=== PATIENT | male | born 1950 | race Caucasian/White ===

== ENCOUNTER 2016-12-21 05:29 | Day surgery (SDC) | payer OTHER ==
[~2016-12-21] VITALS: Ht 180.3 cm; Wt 122.5 kg
--- NOTE | ~2016-12-21 | O ---
[facility] [place] [address] OPERATIVE REPORT Name: JUSTUS CASILLAS Room #: DEP [facility] M.R.#: [id number] Admission: 12/21/16 Attend Phys: Kody Nova MD Discharge: 12/21/16 Date of : 46 Report #: [id number] THIS REPORT FOR: //name// CC: Kody Nova Hi Wagner DATE OF SERVICE: 12/21/2016 PREOPERATIVE DIAGNOSIS: Right buccal mass. POSTOPERATIVE DIAGNOSIS: Right buccal mass. PROCEDURE: Excision of buccal mass with primary closure. SURGEON: Kody Nova MD ANESTHESIA: 2 mL of 1% Xylocaine 1:100,000 epinephrine. TECHNIQUE: After obtaining consent, the patient was brought to the operating suite, appropriate time out was performed. The lesion was localized by the patient and myself. Local anesthetic was infiltrated submucosally. An elliptical incision anterior to posterior artery was made around the mass through the submucosa. Using iris scissors, it was amputated away from the submucosal layer. Hemostasis was maintained with the use of pinpoint cautery on a setting of 15 coagulation. closure, I then elevated the submucosal flaps superiorly and inferiorly and this was closed with simple interrupted 4-0 chromic sutures. He tolerated the procedure well and was taken to the preoperative area in stable condition. Estimated blood loss 2 mL. By: [id number] Kody Nova MD /ruth
--- NOTE | ~2016-12-21 | H ---
[facility] [place] [address] HISTORY AND PHYSICAL Name: JUSTUS CASILLAS Room #: DEP [facility] M..#: [id number] Admission: 12/21/16 Attend Phys: Kody Nova MD Discharge: 12/21/16 Date of : 46 Report #: [id number] THIS REPORT FOR: //name// CC: Kody Rodriguezconchis Hatchaker DATE OF SERVICE: 12/21/2016 DATE OF SURGERY: 12/21/2016. CHIEF COMPLAINT: Right buccal mass. HISTORY OF PRESENT ILLNESS: The patient is a gentleman who has been noted to have a small exophytic mass in right anterior buccal mucosa, which had been present for about a month and slowly increasing in size, but is not causing any other symptoms such as pain, bleeding, or irritation. He may or may not have traumatized the area locally. Examination shows this to be a small exophytic mucosally covered mass with a large base against the buccal mucosa, it appears to not be any more than submucosal. After the findings were discussed with the patient, I recommended removing of the mass under local anesthetic with primary closure with the use of absorbable sutures. The risks and benefits of removal as well as the risks of leaving alone were discussed and the natural history was discussed with him as well. He agrees to proceed forward. ALLERGIES TO MEDICATION: None. MEDICATIONS ON ADMISSION: Coumadin 6 mg tablets daily, vitamin D and vitamin B complex, stool softeners, tamsulosin 0.4 mg once a day, simvastatin 10 mg once a day, omeprazole 20 mg once a day, metoprolol 25 mg once a day, Losartan 50 mg once a day, and levothyroxine 125 mcg once a day. PAST MEDICAL HISTORY: Notable for essential hypertension, hypercholesterolemia, osteoarthritis, coronary artery disease, and hypothyroidism. PAST SURGICAL HISTORY: Unremarkable. FAMILY HISTORY: Noncontributory. REVIEW OF SYSTEMS: Negative for any GI, or cardiovascular issues . PHYSICAL EXAMINATION: GENERAL: Appears his stated age. VITAL SIGNS: Height is 6 feet, weight 265 pounds, and blood pressure 105/83. HEENT: Shows the above-mentioned somewhat fleshy appearing exophytic mass of the right anterior buccal mucosa, it is mobile and is not ulcerative. There is no surrounding leukoplakia. The remainder of the oral cavity is unremarkable. [address] [address] HISTORY AND PHYSICAL Name: SONJAJUSTUS GOTTLIEB [id number] Admission: 12/21/16 Attend Phys: Kody Nova MD Discharge: 12/21/16 Date of : 46 Report #: [id number] NECK: Normal to palpation. CHEST: Clear. CARDIOVASCULAR: Regular rhythm. ASSESSMENT: History of right buccal mass. PLAN: Will be for excision under local anesthetic with primary closure. By: [id number] Kody Nova MD /ruth
--- NOTE | ~2016-12-21 | S ---
[facility] [place] [address] SURGICAL PATH RPT PROCEDURE Name: JUSTUS CASILLAS Room #: DEP [facility]#: [id number] Admission: 12/21/16 Date of : 46 Discharge: 12/21/16 Report #: [id number] Path Case #: [id number] PATHOLOGY REPORT COLLECTION DATE: 12/21/2016 RECEIVED DATE: 12/21/2016 SUBMITTING PHYS: Dr. Kody Nova OTHER PHYS: Dr. Hi Wagner SPECIMEN(S) RECEIVED: A.Right cheek mucosa * * * * * * * * * * * * FINAL DIAGNOSIS: "Right cheek mucosa," excisional biopsy: - Benign squamous mucosa with focal keratinization and submucosal tissue with localized collagenized fibroadipose connective tissue; no dysplasia or malignancy seen. (see comment) COMMENT: The histologic findings may represent a submucosal fibrolipoma or submucosal fibrosis / scar formation. Overlying dysplasia is not present. No malignancy is seen. Clinical correlation is required. The case is co-reviewed with Dr. Austin Núñez. (CLW:; 12/24/2016) PATHOLOGIST: Lizzy Isaacs M.D. REPORT ELECTRONICALLY SIGNED BY: Lizzy Isaacs M.D. DATE/TIME: 12/24/2016 22:09 * * * * * * * * * * * * GROSS PATHOLOGY: Received in formalin labeled "Justus Casillas and lesion right cheek mucosa," is a shave biopsy measuring 1.1 x 0.9 cm in greatest dimensions. The margin is inked, and the specimen is bisected and entirely submitted in cassette A1. (SWS; 12/21/2016) CLINICAL HISTORY: Vestibule mouth INITIAL CPT CODE(S): A; 12856 [facility] [address] [place] [address] SURGICAL PATH RPT PROCEDURE Name: JUSTUS CASILLAS Room #: DEP [facility]#: [id number] Admission: 12/21/16 Date of : 46 Discharge: 12/21/16 Report #: [id number] Path Case #: [id number] [address] [facility] [place] [address] Technical [facility] by [facility] at [address] [place] [address], [facility] [address] [address]. [place] [address] PHONE: [phone] DIRECTOR: Selvin Norris M.D. * * * END OF REPORT * * *
[~2016-12-21 05:29] MED LIST: AVODART0.5 MG PO; CENTRUM SILVER1 EAC2 PO; COZAAR 25 MG TA25 M1 PO; COZAAR 50 MG TA50 M2 PO; ENOXAPARIN120 MG/0.1 SUBQ; FERREX 150 PLU1 EAC1 PO; FIBER LAXATIVE500 MG PO; FIBER0.52 G1 PO; FLOMAX0.4 MG PO; JANTOVEN6 MG PO; KLOR-CON 1010 MEQ PO; LASIX 20 MG TAB20 MG PO; LEVOTHYROXIN0.125 M1 PO; LOPRESSOR25 PO; MULTI VITAMIN1 EACH PO; MULTIVITAMIN; NEXIUM40 MG PO; PACERONE 200 M200 M1 PO; PREDNISONE 20 M20 M1 PO; PRILOSEC20 MG PO; SIMVASTATIN PO; SIMVASTATIN10 MG PO; STOOL SOFTENER100 MG PO; TOPROL XL25 MG PO; VITAMIN B-12500 MCG PO; VITAMIN D1000 UNI1 PO; [UNRECOGNIZED DRUG - OTHER]; [UNRECOGNIZED DRUG - OTHER]
== END 2016-12-21 10:48 | disposition home or self-care (01) ==
LOC: OR 05:29 → TBA 05:30 → OR 10:48
DX: D36.7 Benign neoplasm of other specified sites (principal); Z79.899 Other long term (current) drug therapy; I10 Essential (primary) hypertension; E78.5 Hyperlipidemia, unspecified; Z98.890 Other specified postprocedural states; N40.0 Benign prostatic hyperplasia without lower urinary tract symptoms; K21.9 Gastro-esophageal reflux disease without esophagitis; E03.9 Hypothyroidism, unspecified; I50.32 Chronic diastolic (congestive) heart failure
CPT/HCPCS: 50010; 50101; 50386; 50398; 51636; 56526; 56805